=== PATIENT | female | born 1995 | race African-American/Black ===

== ENCOUNTER 2019-06-16 04:59 | Emergency (ER) | payer MEDICAID ==
[~2019-06-16] VITALS: Ht 167.6 cm; Wt 77.0 kg
[2019-06-16] MEDS ORDERED: KETOROLAC 60MG/2ML VIAL IM STA (05:19)
[2019-06-16 05:24] VITALS: BP 148/83
== END 2019-06-16 06:24 | disposition home or self-care (01) ==
LOC: ER 04:59
DX: H60.12 Cellulitis of left external ear (principal)
CPT/HCPCS: 81025; 96372; 99283; J1885

== ENCOUNTER 2022-05-18 03:12 | Emergency (ER) | payer MEDICAID ==
[~2022-05-18] VITALS: Ht 175.3 cm; Wt 82.0 kg
[2022-05-18 03:14] VITALS: BP 115/67
== END 2022-05-18 07:16 | disposition left against medical advice (07) ==
LOC: ER 03:12
DX: Z53.21 Procedure and treatment not carried out due to patient leaving prior to being seen by health care provider (principal)
CPT/HCPCS: 81025

== ENCOUNTER 2023-02-19 13:42 | Emergency (ER) | payer MEDICAID ==
[~2023-02-19] VITALS: Ht 167.6 cm; Wt 82.0 kg
[2023-02-19 13:46] VITALS: O2SAT 100
[2023-02-19] MEDS ORDERED: DIPHENHYDRAMINE 50MG/ML VIAL IV ONE (14:30)
[2023-02-19] MEDS ORDERED: KETOROLAC 15MG/ML VIAL IV ONE (14:30)
[2023-02-19] MEDS ORDERED: ONDANSETRON HCL 4MG/2ML INJ IV ONE (14:30)
[2023-02-19] MEDS ORDERED: KETO10TA2 MT (15:36)
[2023-02-19 15:45] VITALS: BP 136/82; PULSE 78; RESP 18; TEMP 98
== END 2023-02-19 16:24 | disposition home or self-care (01) ==
LOC: ER 13:42
DX: G43.909 Migraine, unspecified, not intractable, without status migrainosus (principal)
CPT/HCPCS: 99284; 96374; 96375; J1200; J1885; J2405